=== PATIENT | male | born 1960 | race African-American/Black ===

== ENCOUNTER 2017-09-09 11:56 | Emergency (ER) | payer OTHER ==
[~2017-09-09] VITALS: Ht 182.9 cm; Wt 76.8 kg
[2017-09-09] MEDS ORDERED: ACETAMINOPHEN 325 MG TABLET PO ONE (13:00)
[2017-09-09] MEDS ORDERED: SODIUM CHLORIDE 0.9% 1,000 ML IV ONE (13:00)
[2017-09-09 13:45] LABS: BASOPHILS % (AUTO) 0.4 % (0.0-2.0); EOSINOPHILS % (AUTO) 0.2 % (1.0-6.0); HEMATOCRIT 41.8 % (41-53); HEMOGLOBIN 14.1 g/dL (13.5-17.5); LYMPHOCYTES # (AUTO) 1.1 K/uL (1.0-4.8); LYMPHOCYTES % (AUTO) 21.1 % (22.0-44.0); MEAN CORPUSCULAR HEMOGLOBIN 30.5 pg (26.0-34.0); MEAN CORPUSCULAR HGB CONC 33.7 G/dL (31.0-37.0); MEAN CORPUSCULAR VOLUME 90 fL (80-100); MONOCYTES # (AUTO) 0.5 K/uL (0.1-1.0); MONOCYTES % (AUTO) 10.4 % (2.0-9.0); NEUTROPHILS # (AUTO) 3.4 K/uL (1.8-7.7); NEUTROPHILS % (AUTO) 67.9 % (40.0-70.0); PLATELET COUNT (AUTO) 211 K/uL (150-450); RED BLOOD CELL COUNT(AUTO) 4.62 MIL/uL (4.50-5.90); RED CELL DISTRIBUTION WIDTH 14.1 % (11.5-14.5)
[2017-09-09 13:50] LABS: ANION GAP 7 mmol/L (8-16); CALCIUM, TOTAL 8.7 mg/dL (8.8-10.5); CARBON DIOXIDE 27 mmol/L (22-29); CHLORIDE 104 mmol/L (98-107); CREATININE 1.08 mg/dL (0.60-1.30); GLOMERULAR FILTR. RATE CALC > 60 mL/min (>60); GLUCOSE,RANDOM 155 mg/dL (70-110); POTASSIUM 4.4 mmol/L (3.5-5.1); SODIUM SERUM 138 mmol/L (136-145); UREA NITROGEN, BLOOD 13 mg/dL (7-18)
[2017-09-09 14:01] LABS: ALANINE AMINOTRANSFERASE 83 U/L (12-78); ALBUMIN 3.5 g/dL (3.4-5.0); ALKALINE PHOSPHATASE 34 U/L (46-116); ASPARTATE AMINOTRANSFERASE 90 U/L (15-37); BILIRUBIN,TOTAL 0.6 mg/dL (0.1-1.0); TOTAL PROTEIN, SERUM 6.9 g/dL (6.4-8.2)
[2017-09-09 14:12] LABS: INFLUENZA TYPE A NEGATIVE FOR TYPE A (NEGATIVE); INFLUENZA TYPE B NEGATIVE FOR TYPE B (NEGATIVE)
[2017-09-09 14:40] VITALS: BP 141/89
== END 2017-09-09 15:15 | disposition home or self-care (01) ==
LOC: EMS 12:01
DX: J40 Bronchitis, not specified as acute or chronic (principal); F17.210 Nicotine dependence, cigarettes, uncomplicated
CPT/HCPCS: 36415; 71020; 80053; 84484; 85025; 87804; 96360; 99285; J7030

== ENCOUNTER 2018-03-04 14:54 | Emergency (ER) | payer OTHER ==
[~2018-03-04] VITALS: Ht 182.9 cm; Wt 78.0 kg
[2018-03-04] MEDS ORDERED: SIMV-260 PO (15:05)
[2018-03-04] MEDS ORDERED: METO25 PO (15:05)
[2018-03-04] MEDS ORDERED: [UNRECOGNIZED DRUG - OTHER] PO (15:05)
[2018-03-04 17:03] LABS: BASOPHILS % (AUTO) 0.3 % (0.0-2.0); EOSINOPHILS % (AUTO) 0.4 % (1.0-6.0); HEMATOCRIT 44.1 % (41-53); HEMOGLOBIN 14.4 g/dL (13.5-17.5); LYMPHOCYTES # (AUTO) 1.7 K/uL (1.0-4.8); LYMPHOCYTES % (AUTO) 17.8 % (22.0-44.0); MEAN CORPUSCULAR HEMOGLOBIN 28.7 pg (26.0-34.0); MEAN CORPUSCULAR HGB CONC 32.7 G/dL (31.0-37.0); MEAN CORPUSCULAR VOLUME 88 fL (80-100); MONOCYTES # (AUTO) 0.6 K/uL (0.1-1.0); MONOCYTES % (AUTO) 6.6 % (2.0-9.0); NEUTROPHILS # (AUTO) 7.1 K/uL (1.8-7.7); NEUTROPHILS % (AUTO) 74.9 % (40.0-70.0); PLATELET COUNT (AUTO) 275 K/uL (150-450); RED BLOOD CELL COUNT(AUTO) 5.03 MIL/uL (4.50-5.90); RED CELL DISTRIBUTION WIDTH 13.8 % (11.5-14.5)
[2018-03-04 17:14] LABS: ANION GAP 12 mmol/L (8-16); CALCIUM, TOTAL 9.1 mg/dL (8.8-10.5); CARBON DIOXIDE 24 mmol/L (22-29); CHLORIDE 108 mmol/L (98-107); CREATININE 0.98 mg/dL (0.60-1.30); GLOMERULAR FILTR. RATE CALC > 60 mL/min (>60); GLUCOSE,RANDOM 86 mg/dL (70-110); SODIUM SERUM 144 mmol/L (136-145); UREA NITROGEN, BLOOD 11 mg/dL (7-18)
[2018-03-04 17:21] LABS: ALANINE AMINOTRANSFERASE 25 U/L (12-78); ALBUMIN 3.6 g/dL (3.4-5.0); ALKALINE PHOSPHATASE 35 U/L (46-116); ASPARTATE AMINOTRANSFERASE 19 U/L (15-37); BILIRUBIN,TOTAL 0.3 mg/dL (0.1-1.0); LIPASE 197 U/L (73-393); TOTAL PROTEIN, SERUM 7.6 g/dL (6.4-8.2)
[2018-03-04 18:18] VITALS: BP 125/69
[2018-03-04 18:39] LABS: APPEARANCE,URINE CLEAR (CLEAR); BILIRUBIN,URINE NEGATIVE (NEGATIVE); GLUCOSE, URINE (UA) NEGATIVE (NEGATIVE); KETONES,URINE NEGATIVE (NEGATIVE); LEUKOCYTE ESTERASE ,URINE NEGATIVE (NEGATIVE); NITRATE,URINE NEGATIVE (NEGATIVE); OCCULT BLOOD,URINE NEGATIVE (NEGATIVE); PH,URINE 5.5 (5.0-8.0); PROTEIN,URINE NEGATIVE (NEGATIVE); UROBILINOGEN,URINE 0.2 mg/dL (<=1.0)
== END 2018-03-04 19:02 | disposition home or self-care (01) ==
LOC: EMS 14:55
DX: R19.7 Diarrhea, unspecified (principal); E78.00 Pure hypercholesterolemia, unspecified; I10 Essential (primary) hypertension; F17.210 Nicotine dependence, cigarettes, uncomplicated
CPT/HCPCS: 99284; 99406

== ENCOUNTER 2018-05-06 09:49 | Emergency (ER) | payer BC, OTHER ==
[~2018-05-06] VITALS: Ht 182.9 cm; Wt 77.3 kg
[~2018-05-06 09:49] MED LIST: METO25 PO; SIMV-260 PO; [UNRECOGNIZED DRUG - OTHER] PO
[2018-05-06] MEDS ORDERED: BLOOD PRESSURE PO (10:04)
[2018-05-06] MEDS ORDERED: KETOROLAC TROMETHAMINE 30 MG/ML VIAL IM ONE (11:00)
[2018-05-06 12:05] VITALS: BP 116/81
== END 2018-05-06 12:20 | disposition home or self-care (01) ==
LOC: EMS 09:50
DX: M19.90 Unspecified osteoarthritis, unspecified site (principal); M25.552 Pain in left hip; E78.00 Pure hypercholesterolemia, unspecified; I10 Essential (primary) hypertension; F17.210 Nicotine dependence, cigarettes, uncomplicated
CPT/HCPCS: 73503; 96372; 99284; 99406; J1885

== ENCOUNTER 2020-01-03 07:31 | Inpatient (IN) | payer BC, OTHER ==
[~2020-01-03] VITALS: Ht 182.9 cm; Wt 72.8 kg
[~2020-01-03 07:31] MED LIST changes: +BLOOD PRESSURE PO; -METO25 PO; -SIMV-260 PO; -[UNRECOGNIZED DRUG - OTHER] PO
[2020-01-03] MEDS ORDERED: METO25 PO (07:39)
[2020-01-03] MEDS ORDERED: AMLO10TA7 PO (07:39)
[2020-01-03] MEDS ORDERED: SODIUM CHLORIDE 0.9% 1,000 ML IV ONE (08:07)
[2020-01-03] MEDS ORDERED: ONDANSETRON HCL 4 MG/2 ML VIAL IVP ONE (08:15)
[2020-01-03 08:50] LABS: BASOPHILS % (AUTO) 0.3 % (0.0-2.0); EOSINOPHILS % (AUTO) 0 % (1.0-6.0); HEMOGLOBIN 15.4 g/dL (13.5-17.5); LYMPHOCYTES # (AUTO) 0.5 K/uL (1.0-4.8); MEAN CORPUSCULAR HEMOGLOBIN 29.5 pg (26.0-34.0); MEAN CORPUSCULAR HGB CONC 32.8 G/dL (31.0-37.0); MEAN CORPUSCULAR VOLUME 90 fL (80-100); MONOCYTES # (AUTO) 0.8 K/uL (0.1-1.0); MONOCYTES % (AUTO) 7.6 % (2.0-9.0); NEUTROPHILS # (AUTO) 8.9 K/uL (1.8-7.7); PLATELET COUNT (AUTO) 186 K/uL (150-450); RED BLOOD CELL COUNT(AUTO) 5.22 MIL/uL (4.50-5.90)
[2020-01-03 08:54] LABS: NEUTROPHILS % (AUTO) 87.1 % (40.0-70.0)
[2020-01-03] MEDS ORDERED: SODIUM CHLORIDE 0.9% 1,500 ML IV ONE (09:00)
[2020-01-03] MEDS ORDERED: AZITHROMYCIN 500 MG/NS 250 ML IV ONE (09:00)
[2020-01-03] MEDS ORDERED: CefTRIAXone 1 GM/DEXTROSE 50 ML IV ONE (09:00)
[2020-01-03 09:01] LABS: CALCIUM, TOTAL 9.5 mg/dL (8.8-10.5); CREATININE 2.07 mg/dL (0.60-1.30); POTASSIUM 3.6 mmol/L (3.5-5.1)
[2020-01-03 09:10] LABS: LACTIC ACID 1.9 mmol/L (0.4-2.0)
[2020-01-03 09:17] LABS: ALBUMIN 3.5 g/dL (3.4-5.0); BILIRUBIN,TOTAL 0.5 mg/dL (0.1-1.0); FREE T4 (FREE THYROXINE) 0.98 ng/dL (0.76-1.46); THYROID STIMULATING HORMONE 6.78 uIU/mL (0.36-3.74); TOTAL PROTEIN, SERUM 8.7 g/dL (6.4-8.2)
[2020-01-03] MEDS ORDERED: 0.9% SODIUM CHLORIDE 10 ML SYRINGE IVP PRN (09:30)
[2020-01-03 10:00] LABS: INFLUENZA TYPE A POSITIVE FOR TYPE A (NEGATIVE); INFLUENZA TYPE B NEGATIVE FOR TYPE B (NEGATIVE)
[2020-01-03] MEDS ORDERED: OSELTAMIVIR PHOSPHATE 75 MG CAPSULE PO ONE (10:30)
[2020-01-03] MEDS ORDERED: ASPI-728 PO (11:49)
[2020-01-03 11:51] LABS: APPEARANCE,URINE CLEAR (CLEAR); BILIRUBIN,URINE NEGATIVE (NEGATIVE); GLUCOSE, URINE (UA) NEGATIVE (NEGATIVE); KETONES,URINE NEGATIVE (NEGATIVE); LEUKOCYTE ESTERASE ,URINE NEGATIVE (NEGATIVE); NITRATE,URINE NEGATIVE (NEGATIVE); OCCULT BLOOD,URINE SMALL (NEGATIVE); PH,URINE 5.5 (5.0-8.0); PROTEIN,URINE POS 1+ (NEGATIVE); UROBILINOGEN,URINE 0.2 mg/dL (<=1.0)
[2020-01-03 11:58] LABS: BACTERIA,URINE None Seen /HPF (None Seen); HYALINE CASTS, URINE 0-2 /LPF (None Seen); WBC,URINE None Seen /HPF (0-5)
[2020-01-03 12:01] LABS: AMPHET/METH SCREEN,URINE NEGATIVE (NEGATIVE); BARBITURATE SCREEN, URINE NEGATIVE (NEGATIVE); BENZODIAZEPINES SCREEN,URINE NEGATIVE (NEGATIVE); CANNABINOID SCREEN,URINE NEGATIVE (NEGATIVE); COCAINE SCREEN,URINE NEGATIVE (NEGATIVE); METHADONE SCREEN, URINE NEGATIVE (NEGATIVE); OPIATE SCREEN,URINE NEGATIVE (NEGATIVE)
[2020-01-03 12:02] LABS: PHENCYCLIDINE SCREEN,URINE NEGATIVE (NEGATIVE)
[2020-01-03 12:04] VITALS: BP 141/75
[2020-01-03 13:20] VITALS: BP 128/70
[2020-01-03] MEDS: ACETAMINOPHEN 325 MG TABLET PO PRN ×2 (16:04→20:34)
[2020-01-03 16:05] VITALS: BP 123/70
[2020-01-03 19:32] VITALS: BP 115/65
[2020-01-03] MEDS: OSELTAMIVIR PHOSPHATE 30 MG CAPSULE PO SCH (20:34)
[2020-01-04] VITALS (7 sets, daily range): BP systolic 111–128; BP diastolic 59–70
[2020-01-04] MEDS ORDERED: ACETAMINOPHEN 325 MG TABLET PO PRN ×2 (04:40→11:00)
[2020-01-04 06:51] LABS: BASOPHILS % (AUTO) 0.4 % (0.0-2.0); EOSINOPHILS % (AUTO) 0 % (1.0-6.0); HEMATOCRIT 39.3 % (41-53); HEMOGLOBIN 12.9 g/dL (13.5-17.5); LYMPHOCYTES # (AUTO) 0.9 K/uL (1.0-4.8); MEAN CORPUSCULAR HEMOGLOBIN 29.7 pg (26.0-34.0); MEAN CORPUSCULAR HGB CONC 32.9 G/dL (31.0-37.0); MEAN CORPUSCULAR VOLUME 90 fL (80-100); MONOCYTES # (AUTO) 0.5 K/uL (0.1-1.0); MONOCYTES % (AUTO) 7.6 % (2.0-9.0); NEUTROPHILS # (AUTO) 5.5 K/uL (1.8-7.7); PLATELET COUNT (AUTO) 156 K/uL (150-450); RED BLOOD CELL COUNT(AUTO) 4.35 MIL/uL (4.50-5.90); RED CELL DISTRIBUTION WIDTH 13.9 % (11.5-14.5)
[2020-01-04 07:08] LABS: ALANINE AMINOTRANSFERASE 52 U/L (12-78); ALBUMIN 2.5 g/dL (3.4-5.0); ALKALINE PHOSPHATASE 32 U/L (46-116); ANION GAP 11 mmol/L (8-16); ASPARTATE AMINOTRANSFERASE 111 U/L (15-37); BILIRUBIN,TOTAL 0.5 mg/dL (0.1-1.0); CALCIUM, TOTAL 8.6 mg/dL (8.8-10.5); CARBON DIOXIDE 23 mmol/L (22-29); CHLORIDE 107 mmol/L (98-107); GLOMERULAR FILTR. RATE CALC > 60 mL/min (>60); GLUCOSE,RANDOM 94 mg/dL (70-110); POTASSIUM 3.6 mmol/L (3.5-5.1); SODIUM SERUM 141 mmol/L (136-145); UREA NITROGEN, BLOOD 15 mg/dL (7-18)
[2020-01-04] MEDS: ASPIRIN 81 MG CHEWABLE TABLET PO SCH (08:36)
[2020-01-04] MEDS: METOPROLOL TARTRATE 25 MG TABLET PO SCH (08:36)
[2020-01-04] MEDS: OSELTAMIVIR PHOSPHATE 30 MG CAPSULE PO SCH ×2 (08:36→21:35)
[2020-01-04] MEDS ORDERED: BISACODYL 10 MG RECTAL RECTAL SUPPOSITORY PR PRN (11:00)
[2020-01-04] MEDS ORDERED: ZOLPIDEM TARTRATE 5 MG TABLET PO PRN (11:00)
[2020-01-04] MEDS ORDERED: MAGNESIUM HYDROXIDE SUSPENSION 30 ML UDCUP PO PRN (11:00)
[2020-01-04] MEDS ORDERED: HYDROCODONE/ACETAMINOPHEN 5-325 MG TABLET PO PRN (11:00)
[2020-01-04] MEDS ORDERED: ONDANSETRON HCL 4 MG/2 ML VIAL IVP PRN (11:00)
[2020-01-04] MEDS ORDERED: ALBUTEROL SULFATE 2.5 MG/0.5 ML NEB SOLUTION NEB PRN (11:00)
[2020-01-04] MEDS ORDERED: MORPHINE SULFATE 2 MG/ML SYRINGE IVP PRN (11:00)
[2020-01-04] MEDS ORDERED: IPRATROPIUM BROMIDE 0.5 MG/2.5 ML NEB SOLUTION NEB PRN (11:00)
[2020-01-04] MEDS: AmLODIPine BESYLATE 10 MG TABLET PO SCH (12:22)
[2020-01-04] MEDS ORDERED: SODIUM CHLORIDE 0.9% 250 ML IV ONE (12:24)
[2020-01-04] MEDS: CefTRIAXone 1 GM/DEXTROSE 50 ML IV SCH (12:27)
[2020-01-04] MEDS: AZITHROMYCIN 500 MG/NS 250 ML IV SCH (12:28)
[2020-01-04] MEDS: HEPARIN SODIUM,PORCINE 5,000 UNITS/ML VIAL SQ SCH ×2 (16:00→23:46)
[2020-01-04] MEDS: DOCUSATE SODIUM 100 MG CAPSULE PO SCH (21:35)
[2020-01-05 04:23] VITALS: BP 127/71
[2020-01-05 07:24] VITALS: BP 131/69
[2020-01-05] MEDS: AmLODIPine BESYLATE 10 MG TABLET PO SCH (07:47)
[2020-01-05] MEDS: HEPARIN SODIUM,PORCINE 5,000 UNITS/ML VIAL SQ SCH ×3 (07:47→20:47)
[2020-01-05] MEDS: DOCUSATE SODIUM 100 MG CAPSULE PO SCH ×2 (07:47→20:45)
[2020-01-05] MEDS: ASPIRIN 81 MG CHEWABLE TABLET PO SCH (07:47)
[2020-01-05] MEDS: METOPROLOL TARTRATE 25 MG TABLET PO SCH (07:47)
[2020-01-05] MEDS: OSELTAMIVIR PHOSPHATE 30 MG CAPSULE PO SCH ×2 (07:47→20:45)
[2020-01-05] MEDS: CefTRIAXone 1 GM/DEXTROSE 50 ML IV SCH (10:37)
[2020-01-05] MEDS: GuaiFENesin/CODEINE [SUGAR FREE] 200-20MG/10 ML SYRUP UDCUP PO PRN ×2 (10:37→16:41)
[2020-01-05] MEDS: AZITHROMYCIN 500 MG/NS 250 ML IV SCH (10:37)
[2020-01-05 11:27] VITALS: BP 126/75
[2020-01-05 15:35] VITALS: BP 137/80
[2020-01-05 20:08] VITALS: BP 127/76
[2020-01-05 23:38] VITALS: BP 131/65
[2020-01-06 04:55] VITALS: BP 132/73
[2020-01-06 06:22] LABS: BASOPHILS % (AUTO) 0.3 % (0.0-2.0); EOSINOPHILS % (AUTO) 0.2 % (1.0-6.0); HEMATOCRIT 38.7 % (41-53); HEMOGLOBIN 12.6 g/dL (13.5-17.5); LYMPHOCYTES # (AUTO) 1.2 K/uL (1.0-4.8); LYMPHOCYTES % (AUTO) 31.6 % (22.0-44.0); MEAN CORPUSCULAR HEMOGLOBIN 29.4 pg (26.0-34.0); MEAN CORPUSCULAR HGB CONC 32.6 G/dL (31.0-37.0); MEAN CORPUSCULAR VOLUME 90 fL (80-100); MONOCYTES # (AUTO) 0.7 K/uL (0.1-1.0); MONOCYTES % (AUTO) 17.5 % (2.0-9.0); NEUTROPHILS # (AUTO) 1.9 K/uL (1.8-7.7); NEUTROPHILS % (AUTO) 50.4 % (40.0-70.0); PLATELET COUNT (AUTO) 174 K/uL (150-450); RED CELL DISTRIBUTION WIDTH 13.4 % (11.5-14.5)
[2020-01-06 06:36] LABS: ANION GAP 8 mmol/L (8-16); CALCIUM, TOTAL 9.3 mg/dL (8.8-10.5); CARBON DIOXIDE 28 mmol/L (22-29); CHLORIDE 105 mmol/L (98-107); CREATININE 0.76 mg/dL (0.60-1.30); GLOMERULAR FILTR. RATE CALC > 60 mL/min (>60); GLUCOSE,RANDOM 93 mg/dL (70-110); POTASSIUM 3.6 mmol/L (3.5-5.1); SODIUM SERUM 141 mmol/L (136-145); UREA NITROGEN, BLOOD 8 mg/dL (7-18)
[2020-01-06 07:48] VITALS: BP 134/81
[2020-01-06] MEDS: METOPROLOL TARTRATE 25 MG TABLET PO SCH (08:58)
[2020-01-06] MEDS: ASPIRIN 81 MG CHEWABLE TABLET PO SCH (08:58)
[2020-01-06] MEDS: DOCUSATE SODIUM 100 MG CAPSULE PO SCH (08:58)
[2020-01-06] MEDS: AmLODIPine BESYLATE 10 MG TABLET PO SCH (08:58)
[2020-01-06] MEDS: OSELTAMIVIR PHOSPHATE 30 MG CAPSULE PO SCH (08:59)
[2020-01-06] MEDS: HEPARIN SODIUM,PORCINE 5,000 UNITS/ML VIAL SQ SCH (08:59)
[2020-01-06] MEDS ORDERED: TAMIFLU PO (10:13)
[2020-01-06] MEDS ORDERED: CEPH-582 PO (10:13)
== END 2020-01-06 12:30 | disposition home or self-care (01) | DRG 139 ==
LOC: EMS 07:33 → 5S 10:46 → 4E 01-04 16:08
PROVIDERS: ADMIT Hospitalist; ATTEND Hospitalist
DX: J10.00 Influenza due to other identified influenza virus with unspecified type of pneumonia (principal); R65.11 Systemic inflammatory response syndrome (SIRS) of non-infectious origin with acute organ dysfunction; E78.00 Pure hypercholesterolemia, unspecified; E78.5 Hyperlipidemia, unspecified; I10 Essential (primary) hypertension; F17.210 Nicotine dependence, cigarettes, uncomplicated; I44.7 Left bundle-branch block, unspecified; N28.9 Disorder of kidney and ureter, unspecified
CPT/HCPCS: 70450; 83605; 84145; 84439; 84443; 87040; 87804; 93005; G0378; J0456; J0696; J1644; J2405; J7030; J7050

== ENCOUNTER 2022-03-12 09:54 | Emergency (ER) | payer OTHER ==
[~2022-03-12] VITALS: Ht 180.3 cm; Wt 77.3 kg
[~2022-03-12 09:54] MED LIST changes: +AMLO-258 PO; +ASPI-1450 PO; -BLOOD PRESSURE PO; +CEPH-582 PO; +METO25 PO; +TAMIFLU PO
[2022-03-12] MEDS ORDERED: TraMADol HCL 50 MG TABLET PO ONE (11:30)
[2022-03-12] MEDS ORDERED: KETOROLAC TROMETHAMINE 10 MG TABLET PO ONE (11:30)
[2022-03-12 14:32] VITALS: BP 122/68
== END 2022-03-12 15:28 | disposition home or self-care (01) ==
LOC: EMS 09:57
DX: S63.502A Unspecified sprain of left wrist, initial encounter (principal); K21.9 Gastro-esophageal reflux disease without esophagitis; I10 Essential (primary) hypertension; F17.210 Nicotine dependence, cigarettes, uncomplicated; Z79.82 Long term (current) use of aspirin; W19.XXXA Unspecified fall, initial encounter; Y93.89 Activity, other specified; Y92.89 Other specified places as the place of occurrence of the external cause; Y99.8 Other external cause status
CPT/HCPCS: 99283